=== PATIENT | female | born 1970 | race Caucasian/White ===

== ENCOUNTER 2018-04-29 17:04 | Emergency (ER) | payer BC ==
[2018-04-29 17:56] VITALS: BP 141/88; PULSE 118; RESP 20; TEMP 98
--- NOTE | 2018-04-29 20:17 | ED ---
Female Urogenital HPI - General Chief complaint: Urogenital Stated complaint: FEMALE Time Seen by Provider: 04/29/18 18:58 Source: patient Mode of arrival: ambulatory Limitations: no limitations - History of Present Illness Initial comments: 47-year-old male past medical history varicocele percent today for chief complaint of testicular swelling. Patient states it had testicular swelling for the past 13 months. He states it began when he was incarcerated, he states at that time he was evaluated prior to incarceration where ultrasound was performed revealing varicocele. He states throughout his incarceration he experiences increasing swelling of the right testicle. He denies any pain, color changes to the testes. Patient states he does have a dull ache at times. Thinks this is due to the increasing fluid. Patient denies any recent weight loss, fever, chills. Patient denies any. Circulation, urgency frequency or dysuria. Patient denies any abdominal pain. She states she was just now able to get insurance following release from incarceration. Patient states he had ultrasound performed of the testicle which revealed no blood flow however no overt signs of testicular torsion. Patient was told to come to emergency for further evaluation. Upon arrival patient appears well, there is noted elevated heart rate however remainder vital signs within acceptable limits. Patient does not appear to be in acute distress. - Related Data Previous Rx's Medication Instructions Recorded Acyclovir 400 mg PO Q8H 7 Days #28 tablet 04/29/18 Allergies Allergy/AdvReac Type Severity Reaction Status Date / Time No Known Allergies Allergy Verified 04/29/18 19:39 Review of Systems ROS Statement: Those systems with pertinent positive or pertinent negative responses have been documented in the HPI. ROS Other: All systems not noted in ROS Statement are negative. Constitutional: Denies: fever, chills ENT: Denies: as per HPI, ear pain, throat pain Respiratory: Denies: cough, dyspnea Cardiovascular: Denies: chest pain, palpitations, dyspnea on exertion, orthopnea Endocrine: Denies: fatigue Gastrointestinal: Denies: abdominal pain, nausea, vomiting, diarrhea, constipation, hematemesis, melena, hematochezia Genitourinary: Reports: other (Testicular swelling). Denies: frequency, hematuria, discharge Musculoskeletal: Denies: back pain Skin: Denies: rash, lesions Neurological: Denies: headache, weakness, numbness, paresthesias, confusion Past Medical History Past Medical History: No Reported History History of Any Multi-Drug Resistant Organisms: None Reported Past Surgical History: No Surgical Hx Reported Past Psychological History: No Psychological Hx Reported Smoking Status: Current every day smoker Past Alcohol Use History: None Reported Past Drug Use History: None Reported General Exam - General Exam Comments Initial Comments: General: The patient is awake and alert, in no distress, and does not appear acutely ill. Eye: Pupils are equal, round and reactive to light, extra-ocular movements are intact. No nystagmus. There is normal conjunctiva bilaterally. No signs of icterus. Ears, nose, mouth and throat: There are moist mucous membranes and no oral lesions. Neck: The neck is supple, there is no tenderness or JVD. Cardiovascular: There is a regular rate and rhythm. No murmur, rub or gallop is appreciated. Respiratory: Lungs are clear to auscultation, respirations are non-labored, breath sounds are equal. No wheezes, stridor, rales, or rhonchi. Gastrointestinal: Soft, non-distended, non-tender abdomen without masses or organomegaly noted. There is no rebound or guarding present. No CVA tenderness. Bowel sounds are unremarkable. Musculoskeletal: Normal ROM, no tenderness. Strength 5/5. Sensation intact. Pulses equal bilaterally 2+. Neurological: A&O x 3. CN II-XII intact, There are no obvious motor or sensory deficits. Coordination appears grossly intact. Speech is normal. Skin: Skin is warm and dry and no rashes or lesions are noted. Psychiatric: Cooperative, appropriate mood & affect, normal judgment. Testicular exam revealed significant swelling of the right testes in comparison with the left. Patient is not tender to palpation. Scrotum transilluminated. No evidence of mass. No car change. Vertical lie. No evidence of herniation. Limitations: no limitations Course Vital Signs 04/29/18 17:54 Temperature 98 F Pulse Rate 118 H Respiratory 20 Rate Blood Pressure 141/88 O2 Sat by Pulse 99 Oximetry Medical Decision Making - Medical Decision Making 47-year-old male sent from primary care provider for lack of venous or arterial testicular bloodflow on ultrasound. there are no signs of acute torsion. physical exam findings concerning for hydrocele. Dr. abreu with urology was consulted and we discussed at length the findings on outpatient f/u as well as PE findings, after attending physician evaluated patient [id number]. he recommended follow-up tomorrow in office. at this time patient is stable for discharge with follow-up with dr. gallagher her in office. patient is agreeable discharge and plan. there are no signs of acute distress, i do not feel patient 's testicle is acutely torsed. patient discharged in stable condition. Return parameters discussed at length the patient who verbalized understanding. Patient denied questions upon discharge. - Lab Data Lab Results 04/29/18 Range/Units 20:15 Trichomonas Ag (Rapid) Negative (Negative) Disposition Clinical Impression: Vaginal lesion Disposition: HOME SELF-CARE Condition: Good Instructions: Genital Herpes Simplex (ED) Additional Instructions: Please use medication as discussed. Please follow-up with family doctor in the next 2 days. Please follow-up with your established OBGYN for further evaluation. Please return to emergency room if the symptoms increase or worsen or for any other concerns, as discussed. Prescriptions: Acyclovir 400 mg PO Q8H 7 Days #28 tablet Is patient prescribed a controlled substance at d/c from ED?: No Referrals: None,Stated [Primary Care Provider] - 1-2 days [facility] [NON-STAFF] - 1-2 days Time of Disposition: 20:17
[2018-05-01 13:20] LABS: N. gonorrhoeae,PCR Negative (Neg,Equiv); Neisseria Source Vagina
[2018-05-01 13:29] LABS: C. trachomatis,PCR Negative (Neg,Equiv); Chlamydia trachomatis Source Vagina
== END 2018-04-29 20:31 | disposition home or self-care (01) ==
LOC: EC 17:04
DX: N89.8 Other specified noninflammatory disorders of vagina (principal); F17.200 Nicotine dependence, unspecified, uncomplicated
CPT/HCPCS: 87070; 87205; 87491; 87529; 87591; 87808; 99283

== ENCOUNTER → 2018-08-20 | Outpatient (CLI) | payer BC ==
--- NOTE | 2018-08-20 15:25 | CT ---
EXAMINATION TYPE: CT abdomen pelvis w con DATE OF EXAM: 08/20/2018 COMPARISON: None INDICATION: Abn US, pelvic pain, Rt sided pain DLP: 435.2 mGycm, Automated exposure control for dose reduction was used. CONTRAST: 100 mL of Isovue 300. Study performed with Oral Contrast TECHNIQUE: Axial images were obtained from above the diaphragm to the pubic rami in the axial plane a t 5 mm thick sections. Reconstructed images are reviewed on the computer in the coronal plane. FINDINGS: Limited CT sections are obtained the lung bases. The lung bases are clear. CT ABDOMEN: Liver: Normal Spleen: Normal Pancreas: Normal Adrenal glands: The adrenal glands are normal. Gallbladder: Normal Kidneys: No masses are evident. No hydronephrosis is present. No cysts are present. Delayed images were obtained through the kidneys, which remain unremarkable. Aorta: Vascular calcification is within the aorta. Inferior vena cava: Normal. CT PELVIS: Proximal jejunum may has some mild wall thickening and some mild prominence. Mid and distal small bow el loops have a normal caliber has normal appearance. Loops of bowel within the abdomen and pelvis ar e otherwise normal. There are loops of bowel which are incompletely distended or lack oral contra st limiting their evaluation. Appendix: Normal as visualized. Urinary bladder: Normal. Genitourinary structures: Uterus is unremarkable. Adnexal regions are clear. Osseous structures: No suspicious lytic or sclerotic lesions. IMPRESSIONS: 1. Consider jejunitis in the left upper quadrant.
== END | disposition home or self-care (01) ==
LOC: RADCTMAIN 07:46
PROVIDERS: ATTEND Family Medicine
DX: K52.9 Noninfective gastroenteritis and colitis, unspecified (principal)
CPT/HCPCS: 74177; Q9967